=== PATIENT | female | born 1985 | race African-American/Black ===

== ENCOUNTER 2020-05-07 18:05 | Emergency (ER) | payer MEDICAID ==
[~2020-05-07] VITALS: Ht 167.6 cm; Wt 160.0 kg
[2020-05-07 19:44] VITALS: BP 154/95
[2020-05-07] MEDS ORDERED: AMOXICILLIN/POTASSIUM CLAVULANATE 875/125MG TAB PO ONE (19:45)
[2020-05-07] MEDS ORDERED: TRAMADOL 50MG TABLET PO ONE (19:45)
== END 2020-05-07 19:45 | disposition home or self-care (01) ==
LOC: ER 18:05
DX: K04.7 Periapical abscess without sinus (principal); K02.9 Dental caries, unspecified
CPT/HCPCS: 99283